=== PATIENT | female | born 1960 | race Two or more races ===

== ENCOUNTER 2020-04-10 15:24 | Inpatient (IN) | payer OTHER ==
[~2020-04-10] VITALS: Ht 149.9 cm; Wt 62.1 kg
[2020-04-10 15:40] VITALS: BP 147/69
--- NOTE | 2020-04-10 15:40 | NUR ---
ED Nurse Note: Pt walked into ED for R chest pain radiating to R arm 8/10 pain for 1 week. Pt is alert and orientedx4, ambulatory. She is set up on monitor. Pt denies nausea, vomiting dizziness. Pt has been seen by [facility].
--- NOTE | 2020-04-10 15:44 | Emergency Room Report ---
History of Present Illness General Chief Complaint: Back Pain-No Injury Source: Patient Present Illness HPI Patient is a 60-year-old female presents for increased right-sided shoulder pain and chest discomfort. Pain is positional and worse with supine position. No associated exertional complaints. Denies any recent leg swelling or pain. Had prior history of hypothyroidism for which he takes Synthroid 25 mcg. 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 Patient History Past Medical History: see triage record Last Menstrual Period: n/a Reviewed Nursing Documentation: PMH: Agreed; PSxH: Agreed Review of Systems All Other Systems: negative except mentioned in HPI Physical Exam Vital Signs Date Time Temp Pulse Resp B/P (MAP) Pulse Ox O2 Delivery O2 Flow Rate FiO2 04/10/20 15:27 97.5 64 18 152/70 (97) 96 Room Air Sp02 EP Interpretation: reviewed, normal General Appearance: normal inspection, well appearing, no apparent distress, alert, GCS 15 Head: atraumatic ENT: normal ENT inspection, hearing grossly normal, normal voice Neck: normal inspection, full range of motion, supple, no bony tend Respiratory: normal inspection, lungs clear, normal breath sounds, no respiratory distress, no retraction, no wheezing Cardiovascular #1: regular rate, rhythm, no edema Gastrointestinal: normal inspection, normal bowel sounds, non tender, soft, no guarding, no hernia Genitourinary: no CVA tenderness Musculoskeletal: normal inspection, back normal, normal range of motion Neurologic: alert, motor strength/tone normal, day trader III-XII nml as tested, oriented x3, responsive, speech normal, normal inspection Psychiatric: normal inspection, judgement/insight normal, mood/affect normal Medical Decision Making Diagnostic Impression: Primary Impression: Chest pain Additional Impression: Unstable angina ER Course Patient presented for right-sided chest pain. Differential diagnosis include was not limited to pneumonia, pericarditis, coronavirus infection, pancreatitis among others. Because of complexity of patient's case laboratory tests and imaging studies were ordered. Patient has fairly localized pain to the right upper extremity. Does not appear to have any evidence of exertional symptoms c onsistent with myocardial disease. Patient is currently taking thyroid medications and reports being compliant.She was given aspirin. CT angiogram was essentially unremarkable showed no evidence of CT visible pulmonary embolism or aortic dissection. Patient was discussed with Dr. Meza and patient will be admitted to Dr. Jameson for further evaluation due to panel physician Labs Test 04/10/20 15:45 04/10/20 16:00 04/10/20 16:11 Prothrombin Time 13.8 SEC (9.30-11.50) Prothromb Time International Ratio 1.3 (0.9-1.1) Activated Partial Thromboplast Time 23 SEC (23-33) D-Dimer 0.34 mg/L FEU (0.00-0.49) Sodium Level 138 MMOL/L (136-145) Potassium Level 3.5 MMOL/L (3.5-5.1) Chloride Level 100 MMOL/L (98-107) Carbon Dioxide Level 30 MMOL/L (21-32) Anion Gap 9 mmol/L (5-15) Blood Urea Nitrogen 15 mg/dL (7-18) Creatinine 1.2 MG/DL (0.55-1.30) Estimat Glomerular Filtration Rate 45.9 mL/min (>60) Glucose Level 135 MG/DL (74-106) Calcium Level 9.4 MG/DL (8.5-10.1) Total Bilirubin 0.3 MG/DL (0.2-1.0) Aspartate Amino Transf (AST/SGOT) 21 U/L (15-37) Alanine Aminotransferase (ALT/SGPT) 19 U/L (12-78) Alkaline Phosphatase 107 U/L (46-116) Troponin I 0.000 ng/mL (0.000-0.056) C-Reactive Protein, Quantitative < 0.4 mg/dL (0.00-0.90) Pro-B-Type Natriuretic Peptide 157 pg/mL (0-125) Total Protein 9.2 G/DL (6.4-8.2) Albumin 4.4 G/DL (3.4-5.0) Globulin 4.8 g/dL Albumin/Globulin Ratio 0.9 (1.0-2.7) Thyroid Stimulating Hormone (TSH) 4.249 uiU/mL (0.358-3.740) Urine Color Pale yellow Urine Appearance Clear Urine pH 5 (4.5-8.0) Urine Specific [place] 1.015 (1.005-1.035) Urine Protein Negative (NEGATIVE) Urine Glucose (UA) Negative (NEGATIVE) Urine Ketones Negative (NEGATIVE) Urine Blood 1+ (NEGATIVE) Urine Nitrite Negative (NEGATIVE) Urine Bilirubin Negative (NEGATIVE) Urine Urobilinogen Normal MG/DL (0.0-1.0) Urine Leukocyte Esterase 1+ (NEGATIVE) Urine RBC 2-4 /HPF (0 - 2) Urine WBC 10-15 /HPF (0 - 2) Urine Squamous Epithelial Cells Moderate /LPF (NONE/OCC) Urine Bacteria Few /HPF (NONE) White Blood Count 7.4 K/UL (4.8-10.8) Red Blood Count 4.28 M/UL (4.20-5.40) Hemoglobin 13.4 G/DL (12.0-16.0) Hematocrit 39.8 % (37.0-47.0) Mean Corpuscular Volume 93 FL (80-99) Mean Corpuscular Hemoglobin 31.4 PG (27.0-31.0) Mean Corpuscular Hemoglobin Concent 33.7 G/DL (32.0-36.0) Red Cell Distribution Width 12.0 % (11.6-14.8) Platelet Count 261 K/UL (150-450) Mean Platelet Volume 6.7 FL (6.5-10.1) Neutrophils (%) (Auto) 53.2 % (45.0-75.0) Lymphocytes (%) (Auto) 35.8 % (20.0-45.0) Monocytes (%) (Auto) 7.9 % (1.0-10.0) Eosinophils (%) (Auto) 1.6 % (0.0-3.0) Basophils (%) (Auto) 1.4 % (0.0-2.0) EKG Diagnostic Results Rate: normal Rhythm: NSR ST Segments: no acute changes Last Vital Signs Date Time Temp Pulse Resp B/P (MAP) Pulse Ox O2 Delivery O2 Flow Rate FiO2 04/10/20 15:27 97.5 64 18 152/70 (97) 96 Room Air Status: unchanged Disposition: ADMITTED INPATIENT Condition: Stable Rashad Beth MD Apr 10, 2020 15:44
[2020-04-10] MEDS ORDERED: Omnipaque 350 100ml vial INJ PRN (15:45)
--- NOTE | 2020-04-10 15:50 | NUR ---
ED Nurse Note: COVID and urine sent.
[2020-04-10 16:07] LABS: ANION GAP 9 mmol/L (5-15); BLOOD UREA NITROGEN 15 mg/dL (7-18); CALCIUM 9.4 MG/DL (8.5-10.1); CARBON DIOXIDE 30 MMOL/L (21-32); CHLORIDE 100 MMOL/L (98-107); CREATININE 1.2 MG/DL (0.55-1.30); POTASSIUM 3.5 MMOL/L (3.5-5.1); SODIUM 138 MMOL/L (136-145)
[2020-04-10 16:12] LABS: INR 1.3 (0.9-1.1)
[2020-04-10 16:14] LABS: APPEARANCE,URINE CLEAR; BILIRUBIN, URINE NEGATIVE (NEGATIVE); COLOR,URINE PALE YELLOW; GLUCOSE, URINE (UA) NEGATIVE (NEGATIVE); KETONES,URINE NEGATIVE (NEGATIVE); LEUKOCYTE ESTERASE ,URINE 1+ (NEGATIVE); NITRITE,URINE NEGATIVE (NEGATIVE); PH,URINE 5 (4.5-8.0); PROTEIN,URINE NEGATIVE (NEGATIVE); UROBILINOGEN,URINE NORMAL MG/DL (0.0-1.0)
[2020-04-10 16:19] LABS: ALANINE AMINOTRANSFERASE 19 U/L (12-78); ALBUMIN 4.4 G/DL (3.4-5.0); ALBUMIN/GLOBULIN RATIO 0.9 (1.0-2.7); ALKALINE PHOSPHATASE 107 U/L (46-116); ASPARTATE AMINO TRANSFERASE 21 U/L (15-37); BILIRUBIN,TOTAL 0.3 MG/DL (0.2-1.0)
[2020-04-10 16:31] LABS: BASOPHILS % (AUTO) 1.4 % (0.0-2.0); EOSINOPHILS % (AUTO) 1.6 % (0.0-3.0); HEMATOCRIT 39.8 % (37.0-47.0); HEMOGLOBIN 13.4 G/DL (12.0-16.0); LYMPHOCYTES % (AUTO) 35.8 % (20.0-45.0); MEAN CORPUSCULAR VOLUME 93 FL (80-99); MONOCYTES % (AUTO) 7.9 % (1.0-10.0); NEUTROPHILS % (AUTO) 53.2 % (45.0-75.0); PLATELET COUNT 261 K/UL (150-450); RED BLOOD COUNT 4.28 M/UL (4.20-5.40); WHITE BLOOD COUNT 7.4 K/UL (4.8-10.8)
--- NOTE | 2020-04-10 16:36 | Diagnostic Imaging Report ---
EXAM: XR Chest, 1 View CLINICAL HISTORY: CP TECHNIQUE: Frontal view of the chest. COMPARISON: No previous study. FINDINGS: Lungs: The lungs are well aerated. Pleural space: Unremarkable. No pneumothorax. Heart: Cardiomediastinal silhouette unremarkable. Mediastinum: See above. Bones/joints: Osteopenia. Gentle dextroscoliosis of the thoracic spine. Mild to moderate degenerative disc disease of the thoracic spine Soft tissues: Soft tissues are unremarkable. IMPRESSION: No active disease.
[2020-04-10] MEDS ORDERED: cefTRIAXone 1 GM in NS 55 ML IVPB ONE (16:45)
[2020-04-10] MEDS ORDERED: Nitroglycerin Subl 0.4mg tab SL PRN ×2 (17:15→19:15)
[2020-04-10] MEDS ORDERED: SYNTHROID175 MCG ORAL (17:17)
[2020-04-10 17:28] VITALS: BP 132/69
[2020-04-10] MEDS ORDERED: Enoxaparin 80mg Inj SUBQ ONE (18:00)
[2020-04-10] MEDS ORDERED: Metoprolol Tartrate 5mg/5ml Inj IVP ONE (18:00)
[2020-04-10] MEDS ORDERED: Aspirin Baby 81mg ORAL ONE (18:00)
--- NOTE | 2020-04-10 18:07 | Diagnostic Imaging Report ---
EXAM: CT Angiography Chest With Intravenous Contrast CLINICAL HISTORY: CP TECHNIQUE: Axial computed tomographic angiography images of the chest with intravenous contrast. CTDI is 22.1 mGy and DLP is 187.5 mGy-cm. One or more of the following dose reduction techniques were used: automated exposure control, adjustment of the mA and/or kV according to patient size, use of iterative reconstruction technique. MIP reconstructed images were created and reviewed. COMPARISON: 04/10/2020. FINDINGS: Pulmonary arteries: No central pulmonary embolism is noted. Peripheral branches of the pulmonary arteries are unremarkable. Aorta: Thoracic aorta is unremarkable Thoracic aorta and its branches are unremarkable. No thoracic aortic aneurysm. Lungs: Evaluation of the left pulmonary parenchyma reveals minimal subsegmental atelectasis in the lingular region. The airway is patent. No mass. Pleural space: Evaluation of the right pulmonary parenchyma reveals no pneumothorax or pleural effusion. Heart: Heart is normal in size. No significant pericardial effusion. No evidence of RV dysfunction. Bones/joints: Moderate degenerative disc disease of the thoracic spine. No acute fracture. No dislocation. Soft tissues: Unremarkable. Lymph nodes: Unremarkable. No enlarged lymph nodes. Liver: Diffuse fatty infiltration of the liver is noted. Adrenals: 1.5 cm probable left adrenal adenoma which requires no follow-up. IMPRESSION: No central or peripheral pulmonary emboli detected.
--- NOTE | 2020-04-10 18:44 | NUR ---
ED Nurse Note: Report given to Genny LOPEZ.
--- NOTE | 2020-04-10 18:45 | NUR ---
NURSE NOTES: Received report from ER nurse Christin/RN. Waiting on patient to come to the floor.
--- NOTE | 2020-04-10 18:50 | NUR ---
ED Nurse Note: Pt transferred to tele floor with all belongings. No acute distress. Received by RN.
[2020-04-10] MEDS ORDERED: Milk of Magnesia 30ml Ud ORAL PRN (19:15)
[2020-04-10] MEDS ORDERED: Albuterol/Ipratropium 3ml neb HHN PRN (19:15)
[2020-04-10] MEDS ORDERED: Mylanta II UD 30ml ORAL PRN (19:15)
--- NOTE | 2020-04-10 19:22 | NUR ---
NURSE NOTES: Got report from Hailey RN. Per report pt just came up. 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 Initial assessment done. Pt fully alert and ambulatory steady gait. Kinyarwanda speaking little Welsh noted. No skin issues noted. Pt continent. Belongings list verified. Denies any pain. Denies any n/v or SOB. Pt on room air sating 100%. VSS. Pt resting in bed comfortably. Bed in low and locked position, call light within reach, bedside table within reach. Continue to monitor. Orders placed by Dr. Meza.
[2020-04-10] MEDS ORDERED: HydrALAZINE 25mg tab ORAL PRN (19:30)
--- NOTE | 2020-04-10 19:41 | History and Physical ---
History of Present Illness General Reason for Hospitalization: Chest Pain Present Illness HPI Mrs. Tidwell is a 65-year-old female with past medical history of hypothyroidism and hyperlipidemia who presents for right-sided chest pain. Patient reports the chest pain began about a week ago located on the right scapula that radiates down to the right anterior chest. Pain is reproducible on palpation, no alleviating or exacerbating factors. She denies exertional dyspnea, chest pain on exertion, paroxysmal nocturnal dyspnea, orthopnea, presyncope, lower extrem ity edema. She denies any previous chest pain history in the past. No previous cardiopulmonary history in the past as well. She recently got a new insurance and therefore has not seen a physician and a few years. Only medication she is currently on is Synthroid. No other recent illnesses, sick contacts, or travel. In the ED, patient hemodynamically stable with no respiratory compromise. ECG showed normal sinus rhythm without any acute ST elevations or intraventricular blocks. However there was subtle ST depressions in inferior leads. Troponin x1 negative. CTA negative for any acute cardiopulmonary disease, no PE. She will be admitted to observation atypical chest pain. Past medical history: Hypothyroidism, hyperlipidemia Family history: Mother had breast cancer, hypothyroidism, diabetes Surgical history: History of , 1 miscarriage Social history: Denies tobacco use, alcohol use, or drug use Allergies: Coded Allergies: No Known Allergies (Unverified , 04/10/20) COVID-19 Screening Contact w/high risk pt: No Experienced COVID-19 symptoms?: No Medication History Scheduled Levothyroxine Sodium (Synthroid*), 25 MCG ORAL DAILY, (Reported) Patient History Healthcare decision maker Resuscitation status Advanced Directive on File Review of Systems Constitutional: Denies: no symptoms, see HPI, chills, sweats, fever, malaise, weakness, other Eye: Denies: no symptoms, see HPI, eye pain, blurred vision, tearing, double vision, nose pain, nose congestion, acuity changes, discharge, other ENT: Denies: no symptoms, see HPI, ear pain, ear discharge, nose pain, nose congestion, throat pain, throat swelling, mouth pain, hearing loss, nasal discharge, other Respiratory: Denies: no symptoms, see HPI, cough, orthopnea, shortness of breath, stridor, wheezing, BOWEN, sputum, other Cardiovascular: Reports: chest pain; Denies: no symptoms, see HPI, edema, palpitations, syncope, PND, other Gastrointestinal: Denies: no symptoms, see HPI, abdominal pain, constipation, diarrhea, nausea, vomiting, melena, hematemesis, other Genitourinary: Denies: no symptoms, see HPI, discharge, dysuria, frequency, hematuria, pain, retention, incontinence, urgency, vag bleed/dc, other Musculoskeletal: Reports: back pain; Denies: no symptoms, see HPI, gout, joint pain, joint swelling, muscle pain, muscle stiffness, other Skin: Denies: no symptoms, see HPI, rash, change in color, change in hair/nails, dryness, lesions, other Psychiatric: Denies: no symptoms, see HPI, prior hx, anxiety, depressed feelings, emotional problems, SI, HI, hallucinations, other Neurological: Denies: no symptoms, see HPI, headache, numbness, paresthesia, seizure, tingling, tremors, focal weakness, syncope, dizziness, other Endocrine: Denies: no symptoms, see HPI, excessive sweating, flushing, into lerance to temperature, increased thirst, increased urine, unexplained weight loss, other Hematologic/Lymphatic: Denies: no symptoms, see HPI, anemia, blood clots, easy bleeding, easy bruising, swollen glands, diathesis, other Physical Exam General Appearance: no apparent distress, alert, alert oriented x3 HEENT: normocephalic, atraumatic, PERRL Neck: non-tender, supple Respiratory/Chest: lungs clear, normal breath sounds, no respiratory distress Cardiovascular/Chest: normal rate, regular rhythm, no JVD Abdomen: non tender, soft, no organomegaly Extremities: normal range of motion, non-tender Skin Exam: normal pigmentation, warm/dry 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 normal, alert, oriented x 3 Last 24 Hour Vital Signs Date Time Temp Pulse Resp B/P (MAP) Pulse Ox O2 Delivery O2 Flow Rate FiO2 04/10/20 18:50 98.0 82 19 139/87 98 Room Air 04/10/20 18:04 100 142/90 04/10/20 17:37 122/85 04/10/20 17:28 98.0 85 20 132/69 99 Room Air 04/10/20 15:40 97.5 90 17 147/69 97 Room Air 11/8/20 15:40 87 16 Room Air 99 11/8/20 15:27 97.5 64 18 152/70 (97) 96 Room Air Laboratory Tests Test 04/10/20 15:45 04/10/20 16:00 04/10/20 16:11 Prothrombin Time 13.8 SEC (9.30-11.50) H Prothromb Time International Ratio 1.3 (0.9-1.1) H Activated Partial Thromboplast Time 23 SEC (23-33) D-Dimer 0.34 mg/L FEU (0.00-0.49) Sodium Level 138 MMOL/L (136-145) Potassium Level 3.5 MMOL/L (3.5-5.1) Chloride Level 100 MMOL/L (98-107) Carbon Dioxide Level 30 MMOL/L (21-32) Anion Gap 9 mmol/L (5-15) Blood Urea Nitrogen 15 mg/dL (7-18) Creatinine 1.2 MG/DL (0.55-1.30) Estimat Glomerular Filtration Rate 45.9 mL/min (>60) Glucose Level 135 MG/DL (74-106) H Calcium Level 9.4 MG/DL (8.5-10.1) Total Bilirubin 0.3 MG/DL (0.2-1.0) Aspartate Amino Transf (AST/SGOT) 21 U/L (15-37) Alanine Aminotransferase (ALT/SGPT) 19 U/L (12-78) Alkaline Phosphatase 107 U/L (46-116) Troponin I 0.000 ng/mL (0.000-0.056) C-Reactive Protein, Quantitative < 0.4 mg/dL (0.00-0.90) Pro-B-Type Natriuretic Peptide 157 pg/mL (0-125) H Total Protein 9.2 G/DL (6.4-8.2) H Albumin 4.4 G/DL (3.4-5.0) Globulin 4.8 g/dL Albumin/Globulin Ratio 0.9 (1.0-2.7) L Thyroid Stimulating Hormone (TSH) 4.249 uiU/mL (0.358-3.740) Urine Color Pale yellow Urine Appearance Clear Urine pH 5 (4.5-8.0) Urine Specific [place] 1.015 (1.005-1.035) Urine Protein Negative (NEGATIVE) Urine Glucose (UA) Negative (NEGATIVE) Urine Ketones Negative (NEGATIVE) Urine Blood 1+ (NEGATIVE) H Urine Nitrite Negative (NEGATIVE) Urine Bilirubin Negative (NEGATIVE) Urine Urobilinogen Normal MG/DL (0.0-1.0) Urine Leukocyte Esterase 1+ (NEGATIVE) H Urine RBC 2-4 /HPF (0 - 2) H Urine WBC 10-15 /HPF (0 - 2) H Urine Squamous Epithelial Cells Moderate /LPF (NONE/OCC) H Urine Bacteria Few /HPF (NONE) White Blood Count 7.4 K/UL (4.8-10.8) Red Blood Count 4.28 M/UL (4.20-5.40) Hemoglobin 13.4 G/DL (12.0-16.0) Hematocrit 39.8 % (37.0-47.0) Mean Corpuscular Volume 93 FL (80-99) Mean Corpuscular Hemoglobin 31.4 PG (27.0-31.0) H Mean Corpuscular Hemoglobin Concent 33.7 G/DL (32.0-36.0) Red Cell Distribution Width 12.0 % (11.6-14.8) Platelet Count 261 K/UL (150-450) Mean Platelet Volume 6.7 FL (6.5-10.1) Neutrophils (%) (Auto) 53.2 % (45.0-75.0) Lymphocytes (%) (Auto) 35.8 % (20.0-45.0) Monocytes (%) (Auto) 7.9 % (1.0-10.0) Eosinophils (%) (Auto) 1.6 % (0.0-3.0) Basophils (%) (Auto) 1.4 % (0.0-2.0) Microbiology Date/Time Source Procedure Growth Status 04/10/20 15:48 Nasopharynx SARS-CoV-2 RdRp Gene Assay - Final Complete Height (Feet): 4 Height (Inches): 11.00 Weight (Pounds): 137 Medications Current Medications Medications (Trade) Dose Ordered Sig/Fredrick Route PRN Reason Start Time Stop Time Status Last Admin Dose Admin Acetaminophen (Tylenol) 650 mg Q4H PRN ORAL Mild Pain (Pain Scale 1-3) 04/10/20 19:15 05/10/20 19:14 UNV Acetaminophen (Tylenol) 650 mg Q4H PRN ORAL Temp >100.5 04/10/20 19:15 05/10/20 19:14 UNV Al Hydroxide/Mg Hydroxide (Mylanta II) 30 ml Q6H PRN ORAL dyspepsia 04/10/20 19:15 05/10/20 19:14 UNV Albuterol/ Ipratropium (Albuterol/ Ipratropium) 3 ml Q4H PRN HHN Shortness of Breath 04/10/20 19:15 04/15/20 19:14 UNV Cyclobenzaprine HCl (Flexeril) 10 mg ONCE ONCE ORAL 04/10/20 22:00 04/10/20 22:01 UNV Dextrose (Dextrose 50%) 25 ml Q30M PRN IV Hypoglycemia 04/10/20 19:15 07/09/20 19:14 UNV Dextrose (Dextrose 50%) 50 ml Q30M PRN IV Hypoglycemia 04/10/20 19:15 07/09/20 19:14 UNV Enoxaparin Sodium (Lovenox) 40 mg Q24H SUBQ 04/10/20 20:15 07/09/20 20:14 UNV Hydralazine HCl (Apresoline) 25 mg Q4HR PRN ORAL For High Blood Pressure 04/10/20 19:30 07/09/20 19:29 UNV Iohexol (Omnipaque 350 100ml) 100 ml NOW PRN INJ Radiology Procedure 04/10/20 15:45 04/12/20 15:44 Magnesium Hydroxide (Mom) 30 ml HSPRN PRN ORAL Constipation 04/10/20 19:15 05/10/20 19:14 UNV Nitroglycerin (Ntg) 0.4 mg Q5M PRN SL Prn Chest Pain 04/10/20 17:15 05/10/20 17:14 04/10/20 17:37 Nitroglycerin (Ntg) 0.4 mg Q5M X 3 DOSES PRN SL Prn Chest Pain 04/10/20 19:15 05/10/20 19:14 UNV Ondansetron HCl (Zofran) 4 mg Q6H PRN IVP Nausea & Vomiting 04/10/20 19:15 05/10/20 19:14 UNV Assessment/Plan Diagnosis [place] I: Mrs. Tidwell is a 64-year-old female with past medical history of hypothyroidism and hyperlipidemia was presented for right-sided chest pain. A: # Atypical chest pain with ACS rule out # History of hypothyroidism # History of hyperlipidemia # Coagulopathy # Hyperglycemia P: Hemodynamically stable No respiratory compromise saturating well on room air Trend troponin x3 EKG: Normal sinus rhythm without any acute ST elevations, intraventricular conduction blocks CTA: Reviewed, no acute cardiopulmonary disease is, no PE Chest x-ray reviewed no cardiomegaly no pulmonary edema Follow-up echo for heart function, valvular function, wall motion abnormalities, pulmonary pressures As/P nitroglycerin in the ED - Follow-up A1c, lipid panel - trial flexiril for paraspinal spasm CODE: Full GI: None DVT prophylaxis: Lovenox 40 mg Diet: Cardiac Dispo: Likely discharge tomorrow with negative troponin, follow-up echo Time spent on this encounter was 45 minutes which included 25 minutes of counseling and care coordination. I discussed with the nurse at bedside. Time of note may not reflect time patient was seen. Emigdio Meza D.O Apr 10, 2020 19:41
[2020-04-10 20:00] VITALS: BP 133/60
[2020-04-10] MEDS ORDERED: Cyclobenzaprine 10mg Tab ORAL SCH (22:00)
[2020-04-11] VITALS: BP 105/60
[2020-04-11] MEDS ORDERED: traMADol 50mg tab ORAL PRN (03:15)
[2020-04-11 04:00] VITALS: BP 105/51
[2020-04-11] MEDS ORDERED: Levothyroxine 25mcg tab ORAL SCH (06:30)
[2020-04-11 07:29] LABS: BASOPHILS % (AUTO) 1.5 % (0.0-2.0); EOSINOPHILS % (AUTO) 1.6 % (0.0-3.0); HEMATOCRIT 39.4 % (37.0-47.0); HEMOGLOBIN 13.1 G/DL (12.0-16.0); LYMPHOCYTES % (AUTO) 46.7 % (20.0-45.0); MEAN CORPUSCULAR VOLUME 95 FL (80-99); MONOCYTES % (AUTO) 8.2 % (1.0-10.0); NEUTROPHILS % (AUTO) 42.1 % (45.0-75.0); PLATELET COUNT 242 K/UL (150-450); RED BLOOD COUNT 4.15 M/UL (4.20-5.40); WHITE BLOOD COUNT 6.5 K/UL (4.8-10.8)
--- NOTE | 2020-04-11 07:30 | NUR ---
NURSE NOTES: Received pt from JOHN Mcginnis. pt is awake and alert, pt is in RA, no SOB or acute respiratory distress noted. pt is on continues heart monitoring. pt has intact iv access LAC 20G SL. All needs attended, bed is locked and is in the lowest position, call light within easy reach. will continue to monitor.
[2020-04-11 07:35] LABS: ANION GAP 6 mmol/L (5-15); BLOOD UREA NITROGEN 16 mg/dL (7-18); CALCIUM 8.4 MG/DL (8.5-10.1); CARBON DIOXIDE 28 MMOL/L (21-32); CHLORIDE 107 MMOL/L (98-107); CHOLESTEROL 257 MG/DL (< 200); HDL CHOLESTEROL 84 MG/DL (40-60); POTASSIUM 4.6 MMOL/L (3.5-5.1); SODIUM 141 MMOL/L (136-145); TRIGLYCERIDES 76 MG/DL (30-150)
--- NOTE | 2020-04-11 07:35 | NUR ---
NURSE HAND-OFF REPORT: Important Events on Shift: Patient Status: STABLE Diet: CARDIAC Pending Orders: Pending Results/Labs: Pending MD notification: Latest Vital Signs: Temperature 98.0 , Pulse 60 , B/P 105 /51 , Respiratory Rate 16 , O2 SAT 95 , Room Air, O2 Flow Rate . Vital Sign Comment: EKG Rhythm: Sinus Bradycardia Rhythm change?: N MD Notified?: - MD Response: Latest Reeves Fall Score: 30 Fall Risk: Medium Risk Safety Measures: Call light , Bed Alarm , Side Rails Side Rails x2, Bed position . Fall Precautions: Report given to NELY LOPEZ .
[2020-04-11 08:00] VITALS: BP 112/57
[2020-04-11] MEDS ORDERED: CYCLOBENZAPRINE5 MG ORAL (08:38)
--- NOTE | 2020-04-11 08:38 | Discharge Instructions ---
Discharge Instructions Discharge Instructions Diet: 2 GM sodium (low sodium) Resume Normal Activity?: Yes Activity: resume normal activities, no restrictions Follow Up Orders Please follow-up with your primary care physician in 1 to 2 weeks Should you have any recurrent chest pain please return to the ER for further evaluation For Congestive Heart Failure Reminder Report to your physician any weight gain of 5 pounds or more in one week. Emigdio Meza D.O Apr 11, 2020 08:38
--- NOTE | 2020-04-11 08:42 | Discharge Summary ---
Discharge Summary Hospital Course Date of Admission Apr 10, 2020 at 17:31 Date of Discharge Admitting Diagnosis chest pain ro acs HPI Rhonda Tidwell is a 60 year old female who was admitted on Apr 10, 2020 at 17:31 for Chest Pain Rule Out Acute Coronary Syndrome General Appearance: no apparent distress, alert, alert oriented x3 HEENT: normocephalic, atraumatic, PERRL Neck: non-tender, supple Respiratory/Chest: lungs clear, normal breath sounds, no respiratory distress Cardiovascular/Chest: normal rate, regular rhythm, no JVD Abdomen: non tender, soft, no organomegaly Extremities: normal range of motion, non-tender Skin Exam: normal pigmentation, warm/dry 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 Tidwell is a 60-year-old female past medical history of hypothyroidism hyperlipidemia presents for right-sided chest pain. Patient reports over the last week her pain is actually on the right scapula paraspinal region that radiates to the front. Pain is reproducible on palpation with no alleviating or exacerbating factors. Denies any dyspnea on exertion, chest pain on exertion, orthopnea, lower extremity edema comfort presyncope. No palpitations. Denies any previous cardiac history. No history of diabetes, hypertension, tobacco use. Work-up in the hospital showed negative troponins and EKG showing normal sinus rhythm without any acute ST abnormalities. Patient was given Flexeril overnight which he noticed drastically improved her back/chest pain. She is otherwise very hemodynamically stable with no respiratory compromise. She is medically stable for discharge home today. She will follow up with her primary care physician in 1 to 2 weeks. She was instructed that should her chest pain worsen to please return to the ER for further evaluation. # Atypical chest pain with ACS rule out # History of hypothyroidism # History of hyperlipidemia # Coagulopathy # Hyperglycemia # Prediabetes P: Trend troponin x3 EKG: Normal sinus rhythm without any acute ST elevations, intraventricular conduction blocks CTA: Reviewed, no acute cardiopulmonary disease is, no PE -Echo: EF 60-65%, no regional wall motion abnormalities or LVH -Discussed lifestyle changes with diet control, increase exercise for her prediabetes and hyperlipidemia - trial flexiril for paraspinal spasm, Flexeril worked well overnight, instructed patient not to take Flexeril before driving as it can cause drowsiness. 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 I discussed with the nurse at bedside. Time of note may not reflect time patient was seen. Discharge Discharge Vital Signs Last Vital Signs Date Time Temp Pulse Resp B/P (MAP) Pulse Ox O2 Delivery O2 Flow Rate FiO2 04/11/20 08:00 97.5 63 18 112/57 (75) 95 04/11/20 00:04 Room Air 04/10/20 15:40 99 Discharge Disposition Patient was discharged to Discharge Instructions Discharge Instructions Activity: resume normal activities, no restrictions Emigdio Meza D.O Apr 11, 2020 08:42
[2020-04-11] MEDS ORDERED: Enoxaparin 40mg Inj SUBQ SCH (09:00)
--- NOTE | 2020-04-11 11:03 | NUR ---
NURSE NOTES: pt has discharge order, all D/C assessments and instructions done and pt verbally confirmed to understand all. pt is stable, V/S stable, all belongings are with pt and she signed belonging list. iv access D/C. PT IS AWARE TO SEE PRIMARY MD IN ONE WEEK AND f/u FOR cp AND GAIN WEIGHT. no complain of pain at this moment. Pt left hospital with accompany .
--- NOTE | 2020-04-11 13:33 | NUR ---
CASE MANAGEMENT:REVIEW 60YR OLD FEMALE WALKED IN TO ER CC; CHEST PAIN AND RT SHOULDER PAIN SI: ACS 97.5 90 17 147/69 97% ON RA TROPONIN(-) X2 TSH+4.249 IS:IV ROCEPHIN NTG Q5M PRN ASA PO LOVENOX SQ IV LOPRESSOR : TO TELEMETRY 04/11/20 IS;LOVENOX SQ Q24 SYNTHROID PO QD ULTRAM PO Q6HRS PRN DISCHARGED HOME
--- NOTE | 2020-04-12 19:22 | Cardiology Report ---
APPROVED REPORT EKG Measurement Heart [id number] <Conclusion> Normal sinus rhythm Possible septal infarct, age undetermined Borderline ECG
== END 2020-04-11 11:01 | disposition home or self-care (01) | DRG 203 ==
LOC: EMR 15:51 → 2E 17:31 → EDBEDREQ 18:36
DX: R07.89 Other chest pain (principal); E03.9 Hypothyroidism, unspecified; R73.9 Hyperglycemia, unspecified; E78.5 Hyperlipidemia, unspecified; R74.8 Abnormal levels of other serum enzymes; R73.03 Prediabetes
CPT/HCPCS: 36415; 71045; 71275; 80048; 80053; 80061; 81003; 83036; 83735; 83880; 84100; 84439; 84443; 84484; 85025; 85379; 85610; 85730; 86140; 87086; 93005; 93306; 96365; 96372; 96375; 99285; U0002